=== PATIENT | male | born 1950 | race Caucasian/White ===

== ENCOUNTER 2018-11-06 18:54 | Emergency (ER) | payer BC ==
[~2018-11-06] VITALS: Ht 175.3 cm; Wt 87.5 kg
--- OUTSIDE RECORDS SUMMARY | 2018-11-06 18:55 | XMS REPORT | Clinical Summary ---
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 Last Filed Vital Signs Not on file Plan of Treatment Health Maintenance Due Date Last Done Comments COLONOSCOPY SCREENING 1998 SHINGLES VACCINES (#1) 1998 65+ PNEUMOCOCCAL VACCINE 2013 (1 of 2 - PCV13) INFLUENZA VACCINE 11/07/2018 Results Not on fileafter 11/05/2017 Insurance Type Payer Benefit Subscriber ID Effective Phone Address Plan / Dates Group PPO BCBS BCBS OUT xxxxxxxxxxxx 2016-P OF STATE resent Advance Directives Patient has advance care planning documents on file. For more information, triston e contact: Blair Peterson [address] [place] [address]
[2018-11-06] MEDS ORDERED: ACETAMINOPHEN 325 MG TAB PO ONE (20:15)
[2018-11-06 20:25] LABS: BASOPHILS % 0.7 % (0.0-1.0); EOSINOPHILS % 0.7 % (0.0-6.0); HEMOGLOBIN 12.9 g/dL (14.0-18.0); LYMPHOCYTES # (AUTO) 2.8 (1.0-3.2); LYMPHOCYTES % 50.1 % (18.0-39.1); MEAN CORPUSCULAR HEMOGLOBIN 30.1 pg (28-32); MEAN CORPUSCULAR HGB CONC 33.1 g/dL (31-35); MEAN CORPUSCULAR VOLUME 91.1 fL (81-99); MONOCYTES # (AUTO) 0.7 (0.2-0.8); MONOCYTES % 12.6 % (4.4-11.3); NEUTROPHILS % 35.7 % (38.7-80.0); PLATELET COUNT 287 x10e3/uL (140-360); RED BLOOD COUNT 4.28 x10e6/uL (4.3-5.7); RED CELL DISTRIBUTION WIDTH 14.6 % (11.7-14.4)
[2018-11-06 20:34] LABS: INR 0.98; PROTHROMBIN TIME 13.5 seconds (11.9-14.5)
[2018-11-06 20:35] LABS: PARTIAL THROMBOPLASTIN TIME 34.3 seconds (23.8-35.5)
[2018-11-06 20:42] LABS: ALANINE AMINOTRANSFERASE 57 IU/L (0-55); ALBUMIN 2.7 g/dL (3.5-5.0); ALBUMIN/GLOBULIN RATIO 0.6 (0.8-2.0); ALKALINE PHOSPHATASE 230 IU/L (40-150); AMYLASE 84 U/L (25-125); ANION GAP 14.3 mmol/L (8-16); BLOOD UREA NITROGEN 12 mg/dL (7-26); BUN/CREATININE RATIO 15 (6-25); CALCIUM 8.4 mg/dL (8.4-10.2); CARBON DIOXIDE 24 mmol/L (22-29); CHLORIDE 100 mmol/L (98-107); CREATININE, SERUM 0.81 mg/dL (0.72-1.25); EST GLOMERULAR FILTRATION RATE > 60 ML/MIN (60-); GLUCOSE 97 mg/dL (74-118); LIPASE 87 U/L (8-78); POTASSIUM 4.3 mmol/L (3.5-5.1); SODIUM 134 mmol/L (136-145)
[2018-11-06 20:50] LABS: BILIRUBIN,URINE NEGATIVE (NEGATIVE); CLARITY,URINE SL CLOUDY (CLEAR); COLOR,URINE YELLOW (YELLOW); KETONES,URINE NEGATIVE (NEGATIVE); LEUKOCYTE ESTERASE ,URINE NEGATIVE (NEGATIVE); NITRITE,URINE NEGATIVE (NEGATIVE); PROTEIN,URINE DIPSTICK NEGATIVE (NEGATIVE); URINE UROBILINOGEN 0.2 mg/dL (0.2 - 1)
[2018-11-06] MEDS ORDERED: IBUPROFEN 600 MG TAB PO ONE (20:55)
[2018-11-06 21:06] LABS: BACTERIA,URINE MODERATE /HPF
--- NOTE | 2018-11-07 00:25 | Diagnostic Imaging Report ---
EXAM: Right Upper Quadrant Ultrasound INDICATION: Abdominal pain COMPARISON: None. TECHNIQUE: Transverse and longitudinal images of the right upper abdomen were obtained. FINDINGS: Liver: Size: 13.9 cm in the right midclavicular line, normal Appearance: Normal echogenicity, smooth contour Mass: No focal masses Gallbladder: Stones/Sludge: Echogenic shadowing gallstone at the gallbladder neck. Biliary sludge in the gallbladder lumen. Wall: 0.3 cm, upper limit of normal Appearance: No pericholecystic fluid or hydrops. Sonographic Barrios's Sign: Negative Bile Ducts: Intrahepatic Ducts: No dilatation Extrahepatic Ducts: Common bile duct measures 0.4 cm, no dilatation Pancreas: Unable to visualize due to overlying bowel gas. Right Kidney: Size: 10.5 cm Echogenicity: Normal Parenchymal thickness: Normal Collecting system: Slightly prominent right renal pelvis. Stones: None Cyst/Mass: None Vessels: Limited evaluation of the aorta and IVC due to overlying bowel gas. The upper abdominal aorta is nondilated. Main Portal Vein: 1.1 cm, normal size with hepatopetal flow. Free Fluid: No ascites or pleural effusion IMPRESSION: Equivocal findings for cholecystitis. There is a gallstone in the gallbladder neck and mild gallbladder wall thickening, however no sonographic Barrios's sign or pericholecystic fluid. Mild right renal pelviectasis. Signed by: Handy Love DO on 11/07/2018 12:22 AM
== END 2018-11-07 01:34 | disposition home or self-care (01) ==
LOC: ER 18:54
DX: Z03.89 Encounter for observation for other suspected diseases and conditions ruled out (principal); R10.9 Unspecified abdominal pain
CPT/HCPCS: 36415; 76705; 80053; 81001; 82150; 83690; 85025; 85610; 85730; 87086; 99284

== ENCOUNTER → 2018-11-20 | Day surgery (SDC) | payer BC ==
[2018-11-18 16:05] LABS: BASOPHILS % 0.7 % (0.0-1.0); EOSINOPHILS # (AUTO) 0.1 (0.0-0.4); HEMATOCRIT 39.6 % (38.2-49.6); HEMOGLOBIN 12.7 g/dL (14.0-18.0); LYMPHOCYTES # (AUTO) 1.9 (1.0-3.2); MEAN CORPUSCULAR HEMOGLOBIN 29.6 pg (28-32); MEAN CORPUSCULAR HGB CONC 32.1 g/dL (31-35); MEAN CORPUSCULAR VOLUME 92.3 fL (81-99); MONOCYTES # (AUTO) 0.5 (0.2-0.8); MONOCYTES % 11.2 % (4.4-11.3); NEUTROPHILS # (AUTO) 1.8 (2.1-6.9); NEUTROPHILS % 41.9 % (38.7-80.0); PLATELET COUNT 247 x10e3/uL (140-360); RED BLOOD COUNT 4.29 x10e6/uL (4.3-5.7); RED CELL DISTRIBUTION WIDTH 15.6 % (11.7-14.4)
[~2018-11-20] MED LIST: FENTANYL CITRATE/PF 100MCG/2 ML INJ ONE; GLUCAGON FOR INJ 1 MG VIAL ONE; HYOSCYAMINE 0.125 MG TAB ONE; METOCLOPRAMIDE HCL 10 MG/2ML VIAL ONE; MIDAZOLAM HCL 2 MG/2 ML VIAL ONE; PROPOFOL IV EMULSION 10 MG/ML 20 ML VIAL ONE; PROPOFOL IV EMULSION 10 MG/ML 50 ML VIAL ONE
--- OUTSIDE RECORDS SUMMARY | 2018-11-20 10:47 | XMS REPORT ---
[facility] Address Unknown Phone Unavailable Care Team Providers Care Ship Boss Name Role Phone Ronny VILLA Unavailable Unavailable Payers Payer Name Policy Type Policy Number Effective Date Expiration Date Problems This patient has no known problems. Allergies, Adverse Reactions, Alerts Allergy Name Allergy Type Status Severity Reaction(s) Onset Date Inactive Date Treating Clinician Comments No Known Allergies DA Active U 2012-01-25 00:00:00 Medications This patient has no known medications. Results Test Description Test Time Test Comments Text Results Atomic Results Result Comments - HEPA IMAG INCL GB W PHA 2018-11-14 12:12:00 [place]: B St: REG Name: CLAUDIA PHELPS KIM [facility] : 1950 Age/S: 68/M [address] [id number] Loc: [place] [address] Phys: Wyatt Gordon MD Acct: [id number] Dis Date: Status: REG CLI PHONE #: [phone] Exam Date: 11/14/2018 1200 FAX #: [phone] Reason: GALLSTONES EXAMS: CPT CODE: [id number] HEPA IMAG INCL GB W PHA [id number] HISTORY: GALLSTONES EXAM: NUCLEAR MEDICINE HEPATOBILIARY SCAN. TECHNIQUE: After IV injection of 5.5 mCi Tc 99m Choletec, sequential planar images were obtained over the upper abdomen out to 60 minutes. FINDINGS: Homogeneous distribution of radiopharmaceutical in the liver. Normal accumulation of radiopharmaceutical in the gallbladder by 30 minutes. Normal accumulation of radiopharmaceutical in small bowel by 15 minutes. Following the administration of cholecystokinin, there is less than 10% ejection fraction. IMPRESSION: 1. No evidence of acute cholecystitis or biliary obstruction. 2. Markedly decreased ejection fraction of the gallbladder consistent with biliary dyskinesia. at 1212 Reported and signed by: Samuel Billy MD CC: Technologist: Ysabel MENDEZ(N) Trnscrd Date/Time/By: 11/14/2018 (2789) : By: [email or web address] Orig Print D/T: S: 11/14/2018 (0832) PAGE 1 Signed Report US GALLBLADDER 2018-11-07 00:15:00 [place] [address] Patient Name: CLAUDIA PHELPS MR #: [id number] : 1950 Age/Sex: 68/M Req #: [id number] Adm Physician: Ordered by: DOTTIE XAVIER NP Report #: [id number] Location: ER Room/Bed: Procedure: [id number] US/US GALLBLADDER Exam Date: 11/06/18 Exam Time: 2213 REPORT STATUS: Signed EXAM: Right Upper Quadrant Ultrasound INDICATION: Abdom inal pain COMPARISON: None. TECHNIQUE: Transverse and longitudinal images of the right upper abdomen were obtained. FINDINGS: Liver: Size: 13.9 cm in the right midclavicular line, normal Appearance: Normal echogenicity, smooth contour Mass: No focal masses Gallbladder: Stones/Sludge: Echogenic shadowing gallstone at the gallbladder neck. Biliary sludge in the gallbladder lumen. Wall: 0.3 cm, upper limit of normal Appearance: No pericholecystic fluid or hydrops. Sonographic Barrios's Sign: Negative Bile Ducts: Intrahepatic Ducts: No dilatation Extrahepatic Ducts: Common bile duct measures 0.4 cm, no dilatation Pancreas: Unable to visualize due to overlying bowel gas. Right Kidney: Size: 10.5 cm Echogenicity: Normal Parenchymal thickness: Normal Collecting system: Slightly prominent right renal pelvis. Stones: None Cyst/Mass: None Vessels: Limited evaluation of the aorta and IVC due to overlying bowel gas. The upper abdominal aorta is nondilated. Main Portal Vein: 1.1 cm, normal size with hepatopetal flow. Free Fluid: No ascites or pleural effusion IMPRESSION: Equivocal findings for cholecystitis. There is a gallstone in the gallbladder neck and mild gallbladder wall thickening, however no sonographic Barrios's sign or pericholecystic fluid. Mild right renal pelviectasis. Signed by: Handy Love DO on 11/07/2018 12:22 AM Dictated By: HANDY LOVE DO Transcribed By: ZAK on 11/07/1821 COPY TO: DOTTIE XAVIER NP
--- OUTSIDE RECORDS SUMMARY | 2018-11-20 10:47 | XMS REPORT | Clinical Summary ---
Author Author [facility] [employer] [facility] [employer] Address Unknown Phone Unavailable Care Team Providers Care Dry Ice Maker Name Role Phone Asked, No Pcp PCP [...] INFLUENZA VACCINE 11/07/2018 Results Not on fileafter 11/19/2017 Insurance Type Payer Benefit Subscriber ID Effective Phone Address Plan / Dates Group PPO BCBS BCBS OUT xxxxxxxxxxxx 2016-P OF STATE resent Advance Directives Patient has advance care planning documents on file. For more information, triston e contact: Blair Peterson [address] [place] [address]
[2018-11-20 15:45] VITALS: BP 136/67
[2018-11-20 16:23] LABS: ALANINE AMINOTRANSFERASE 61 IU/L (0-55); ALBUMIN 3.3 g/dL (3.5-5.0); ALBUMIN/GLOBULIN RATIO 0.7 (0.8-2.0); ALKALINE PHOSPHATASE 187 IU/L (40-150); ANION GAP 13.2 mmol/L (8-16); BLOOD UREA NITROGEN 12 mg/dL (7-26); BUN/CREATININE RATIO 13 (6-25); CALCIUM 9.1 mg/dL (8.4-10.2); CARBON DIOXIDE 24 mmol/L (22-29); CHLORIDE 101 mmol/L (98-107); CREATININE, SERUM 0.94 mg/dL (0.72-1.25); EST GLOMERULAR FILTRATION RATE > 60 ML/MIN (60-); GLUCOSE 83 mg/dL (74-118); POTASSIUM 4.2 mmol/L (3.5-5.1); SODIUM 134 mmol/L (136-145)
--- NOTE | 2018-11-20 18:52 | Operative Report ---
DATE OF PROCEDURE: 11/20/2018 SURGEON: Moy Coronel MD PROCEDURES: EGD with biopsies and colonoscopy with polypectomy and biopsies. INDICATIONS FOR EGD: Dyspepsia. INDICATIONS FOR COLONOSCOPY: Colorectal cancer screening. MEDICATIONS: The patient was done under MAC, please see anesthesiologist's note. PROCEDURE IN DETAIL: With the patient in left lateral decubitus position, the flexible fiberoptic Olympus gastroscope was introduced into the esophagus under direct visualization without any difficulty. Grade 1 to 2 esophageal varices were noted in the mid and distal esophagus without active bleeding or stigmata of recent hemorrhage. A minute tongue of velvety red mucosa was noted to extend proximally from the GE junction that was biopsied to rule out Gaspar's. The scope was then advanced with ease into the stomach. Mucosa overlying the antrum and the body revealed some patchy intense erythema and mild to moderate edema, and biopsies were obtained and sent to stain for H. pylori. Pylorus was of normal contour and shape, it was intubated with ease and the scope was advanced all the way to the second portion of the duodenum. The scope was then withdrawn slowly and biopsies were obtained from the second portion and duodenal bulb to rule out sprue. The scope was then withdrawn back into the stomach and retroflexed, and extrinsic compression was noted in the upper body along the greater curvature and the fundus. The overlying mucosa grossly appeared to be within normal limits, biopsies were obtained. The scope was then straightened out, it was subsequently withdrawn, and the patient tolerated the procedure well. IMPRESSION: 1. Grade 1 to 2 esophageal varices without active bleeding or stigmata of recent hemorrhage. 2. Rule out Gaspar esophagus. 3. Gastritis, biopsied, biopsies sent to stain for Helicobacter pylori. 4. Extrinsic compression in fundus and upper body. 5. Rule out sprue. PLAN: Follow up histology. Initiate Protonix 40 mg one p.o. q.a.m. before meals. The patient was then turned around and after adequate lubrication of the anal canal, a flexible fiberoptic Olympus colonoscope was inserted into the rectum with ease and advanced all the way to the cecum. Some patchy nodularity was noted in the cecum that was biopsied. The scope was then withdrawn slowly and whatever was visualized, the mucosa overlying the ascending colon appeared to be grossly within normal limits. One polyp was snared from the transverse colon. Diverticular disease was pretty much noted to be scattered throughout including the descending and the sigmoid. The rectum grossly appeared to be within normal limits. The scope was then retroflexed into the distal rectum and internal hemorrhoids were noted, none of which was actively bleeding. The scope was then straightened out, it was subsequently withdrawn, and the patient tolerated the procedure well. IMPRESSION: 1. Patchy nodularity of cecum, biopsied. 2. Diverticulosis. 3. Transverse colon polyp, snared. 4. Internal hemorrhoids, none actively bleeding. PLAN: Follow up histology. Initiate high-fiber, low-fat diet. Initiate high-fiber supplement. The patient might benefit from a followup colonoscopy in 5 years. Moy Coronel MD [facility] [place] /[id number] cc: Terri Nobles MD
== END | disposition home or self-care (01) ==
LOC: OR 10:45
PROVIDERS: ATTEND Internal Medicine Gastroenterology
DX: Z12.11 Encounter for screening for malignant neoplasm of colon (principal); D12.3 Benign neoplasm of transverse colon; K29.70 Gastritis, unspecified, without bleeding; I85.00 Esophageal varices without bleeding; K29.80 Duodenitis without bleeding; K63.89 Other specified diseases of intestine; K22.8 Other specified diseases of esophagus; K57.30 Diverticulosis of large intestine without perforation or abscess without bleeding; K64.8 Other hemorrhoids; B96.81 Helicobacter pylori [H. pylori] as the cause of diseases classified elsewhere; I44.0 Atrioventricular block, first degree; F41.9 Anxiety disorder, unspecified; Z01.810 Encounter for preprocedural cardiovascular examination; Z01.812 Encounter for preprocedural laboratory examination; I45.10 Unspecified right bundle-branch block; Z68.29 Body mass index [BMI] 29.0-29.9, adult; Z86.19 Personal history of other infectious and parasitic diseases
CPT/HCPCS: 36415 ×2; 43239; 45380; 45385; 80053; 85025; 93005; J1610; J2250; J2704 ×2; J2765; J3010; 45378; 45384

== ENCOUNTER → 2018-11-26 | Outpatient (CLI) | payer BC ==
[~2018-11-26] MED LIST changes: -FENTANYL CITRATE/PF 100MCG/2 ML INJ ONE; -GLUCAGON FOR INJ 1 MG VIAL ONE; -HYOSCYAMINE 0.125 MG TAB ONE; +IOPAMIDOL 370 MG/ML 200 ML INFUS..BTL INJ ONE; -METOCLOPRAMIDE HCL 10 MG/2ML VIAL ONE; -MIDAZOLAM HCL 2 MG/2 ML VIAL ONE; -PROPOFOL IV EMULSION 10 MG/ML 20 ML VIAL ONE; -PROPOFOL IV EMULSION 10 MG/ML 50 ML VIAL ONE; +SODIUM CHLORIDE 0.9% 50ML 50 ML ONE
[2018-11-26 12:47] LABS: BLOOD UREA NITROGEN 10 mg/dL (7-26); BUN/CREATININE RATIO 11 (6-25); CREATININE, SERUM 0.87 mg/dL (0.72-1.25); EST GLOMERULAR FILTRATION RATE > 60 ML/MIN (60-)
--- NOTE | 2018-11-26 14:35 | Diagnostic Imaging Report ---
CT of the abdomen and pelvis, with contrast, 11/26/2018. History: Vomiting and bloating. Comparison: Ultrasound 11/06/2018. Technique: Multidetector CT scanning of the abdomen and pelvis was performed from the level of the lung bases to the inferior pubic rami after intravenous administration of contrast. Coronal and sagittal multiplanar reformations were obtained. RADIATION DOSE: Total DLP: 688 mGy*cm Dose modulation, iterative reconstruction, and/or weight based adjustment of the mA/kV was utilized to reduce the radiation dose to as low as reasonably achievable. Discussion: LUNG BASES: The heart is enlarged. The lung bases are clear. ABDOMEN: A small stone is present in the gallbladder. There is no gallbladder wall thickening. There is heterogeneous enhancement of the spleen likely related to early phase of contrast. The liver, biliary tree, pancreas, adrenal glands, and kidneys are normal. The hepatic vein, portal vein, and splenic vein are patent. The abdominal aorta is within normal limits for size. The stomach and small bowel are unremarkable. The appendix is visualized and is normal. Scattered diverticuli are present within the colon without evidence of adjacent inflammation. There is no evidence of adenopathy or free fluid. PELVIS: The bladder, prostate, and seminal vesicles are normal in appearance. There is no evidence of free fluid or adenopathy. A small fat-containing right inguinal hernia is present. BONES AND SOFT TISSUES: Degenerative changes are present throughout the lumbar spine without evidence of lytic or sclerotic lesion. IMPRESSION: 1. Cholelithiasis as previously noted. 2. Colonic diverticulosis without evidence of diverticulitis. 3. Small fat-containing right inguinal hernia. Otherwise unremarkable exam. Signed by: Saleem Brown on 11/26/2018 2:32 PM
== END ==
LOC: CT 12:00
PROVIDERS: ATTEND Internal Medicine Gastroenterology
DX: R11.10 Vomiting, unspecified (principal); R14.0 Abdominal distension (gaseous); K57.90 Diverticulosis of intestine, part unspecified, without perforation or abscess without bleeding; K40.90 Unilateral inguinal hernia, without obstruction or gangrene, not specified as recurrent
CPT/HCPCS: 36415; 74177; 82565; 84520; Q9967